=== PATIENT | female | born 1970 | race Caucasian/White ===

== ENCOUNTER → 2016-09-06 | Day surgery (SDC) | payer BC ==
[~2016-09-06] MED LIST: ALBUTEROL INHALER; ALBUTEROL20 ml INH; ALLOPURINOL300 MG PO; AVAPRO150 MG PO; DUEXIS 800-26.1 EACH PO; FLAGYL PO; FLOMAX0.4 M1 PO; GABAPENTIN300 M2 PO; HYDROCODON-ACE1 EAC7 PO; LEVOTHYROXINE PO; LEVOXYL175 MC1 PO; LIORESAL10 MG PO; LO LOESTRIN FE1 EACH PO; LOESTRIN 21 1-1 EACH PO; MULTI VITAMIN1 EACH PO; NEURONTIN600 MG PO; NORCO 10/3251 TAB DOB; NORVASC PO; QVAR INHALER; QVAR8.7 G1 INH; SINGULAIR PO; VITAMIN D33000 UNIT PO; XOLAIR; XOLAIR150 MG/1.2 INJ; XOLAIR150 MG/1.2 SUBQ; ZOFRAN PO; ZYRTEC PO; ZYRTEC10 M1 PO; [UNRECOGNIZED DRUG - OTHER]
--- NOTE | ~2016-09-06 | OR ---
Unit #: [id number] #: [id number] Patient: KONRAD WARNER [id number] [address] [place], [place] [address] [id number] O MR#: [id number] NAME: KONRAD WARNER ROOM: Date of Procedure: 09/06/2016 Admission Date: 09/06/2016 Surgeon: Zac Higgins M.D. : 1970 Attending Physician: Zac Higgins M.D. Primary Care Physician: Nadiya Varela M.D. OPERATIVE REPORT JOB NOTE: CC: PAIN CENTER PREOPERATIVE DIAGNOSIS Chronic regional pain syndrome of lower extremity. POSTOPERATIVE DIAGNOSIS Chronic regional pain syndrome of lower extremity. PROCEDURE PERFORMED Lumbar sympathetic block with intravenous sedation and fluoroscopic guidance for needle localization. 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 She has been treated aggressively with conservative measures, some improvement, sympathetic blockade is too required when the pain flares. We are currently waiting approval for hopeful spinal cord stimulation trial. In the last visit, she also had a scar neuroma injected of foot, which was very helpful and remained helpful. DESCRIPTION OF PROCEDURE The patient was placed in a prone position. Standard monitors were applied. 2 mg of Versed were given for sedation and anxiolysis, which were adequate. Vital signs remained stable. Sterile prep and drape then of the thoracolumbar area was performed. The skin then to the right of midline at the L1 level was localized with 1% lidocaine. A long 22-gauge Quincke-point spinal needle was advanced with biplanar fluoroscopic guidance to the lateral border of the L1 vertebral body. The needle was worked up to the anterolateral border and checked with biplanar fluoroscopy with radiographic contrast and loss of resistance technique. After confirming proper positioning, 10 mL of 0.25% bupivacaine were deposited. There was negative intermittent aspiration every 2 to 3 mL. The patient tolerated the procedure otherwise well and was discharged to the recovery room in stable condition. Dictated by... Zac Higgins M.D. P/modl Unit #: [id number] #: [id number] Patient: KONRAD WARNER TD: 09/06/2016 22:37 JOB #: [id number] OPERATIVE REPORT X Zac Higgins MD X PROCEDURE OPERATIVE NOTE
== END | disposition home or self-care (01) ==
LOC: CCSC 11:11
DX: G90.521 Complex regional pain syndrome I of right lower limb (principal)
CPT/HCPCS: J1040; J2250

== ENCOUNTER → 2016-09-26 | Day surgery (SDC) | payer BC ==
--- NOTE | ~2016-09-26 | CR242 ---
[facility] A Service of [facility] RADIOLOGY TEXT RESULTS PATIENT: KONRAD WARNER LOCATION: [facility] : [birth year] UNIT #: [id number] AGE: [address]: Zac Higgins MD SEX: F ORDER DR: [id number] [facility] [address] [place], [place] [address] [id number] MR#: [id number] Acc #: [id number] NAME: KONRAD WARNER : 1970 SEX: F STUDY DATE/TIME: 09/26/2016 10:04 UNIT: [facility] ROOM: STUDY DESCRIPTION: CR Thoracic Spine 2 Views Attending Physician: Zac Higgins M.D. Ordering Physician: Zac Higgins M.D. Primary Care Physician: Nadiya Varela M.D. MEDICAL IMAGING REPORT This report is preliminary unless electronic signature is present EXAM Thoracic spine in the OR, 09/26 INDICATIONS Pain stimulator insertion today. History of chronic back pain for at least 2 months. FINDINGS AP and lateral C-arm views of the thoracolumbar junction were obtained. Fluoro time is 1 minute 14 seconds. Study shows an intraspinal catheter, with the distal tip at the level of the mid T8 vertebral body. Correlate with operative note. IMPRESSION Catheter tip at the level of mid T8. Correlate with operative note. Dictated by... Alberto Velazquez Jr., M.D. THIS IS AN ELECTRONICALLY VERIFIED REPORT Alberto Velazquez Jr., M.D. at 09/26/2016 10:31 PM ART/esme TD: 09/26/2016 19:32 JOB #: [id number] MEDICAL IMAGING REPORT COPY
--- NOTE | ~2016-09-26 | EKG ---
PATIENT: KONRAD WARNER UNIT #: [id number] Ventricular Rate: 70 BPM Atrial Rate: 70 BPM P-R Interval: 148 ms QRS Duration: 78 ms Q-T Interval: 390 ms QTC Calculation(Bezet): 421 ms P [place]: 49 degrees Calculated R [place]: 13 degrees Calculated T [place]: 45 degrees Diagnosis Line: Normal sinus rhythm Diagnosis Line: Normal ECG Diagnosis Line: No previous ECGs available Diagnosis Line: Confirmed by TYLER HOUSE MD ([id number]) on Diagnosis Line: 09/27/2016 2:21:38 PM INTERPRETING MD: HARSH THOMASON
--- NOTE | ~2016-09-26 | OR ---
Unit #: [id number] #: [id number] Patient: KONRAD WARNER [id number] [address] [place], [place] [address] [id number] MR#: [id number] NAME: KONRAD WARNER ROOM: 30391 Date of Procedure: 09/26/2016 Admission Date: 09/26/2016 Surgeon: Zac Higgins M.D. : 1970 Attending Physician: Zac Higgins M.D. Primary Care Physician: Nadiya Varela M.D. OPERATIVE REPORT PREOPERATIVE DIAGNOSIS Chronic regional pain syndrome, right lower extremity. POSTOPERATIVE DIAGNOSIS Chronic regional pain syndrome, right lower extremity. PROCEDURE PERFORMED Spinal cord stimulator with percutaneous lead placement with fluoroscopic guidance. ANESTHESIA MAC. ESTIMATED BLOOD LOSS 5 mL. DESCRIPTION OF PROCEDURE The patient was placed in a prone position. Standard monitors were applied. Sterile prep and drape of the thoracolumbar area was performed. The skin just to the left of midline at L1-L2 level was localized with 1% lidocaine. A 14-gauge introducer needle was then advanced after stab incision was made with an 11-blade. It was advanced via slight left paramedian approach with loss of resistance technique. The patient did not complain of pain or paresthesia. We elected to reposition 2 or 3 times before we were able to get the lead to travel cephalad along the midline. The patient did not complain of any paresthesia or pain. We were able to get stimulation then with a central leads overlying the T12 vertebral body. Stimulation at this level covered all of the patient's symptomatic area in her right lower extremity. The catheter system was then securely fastened using 2-0 suture and a butterfly anchor. Sterile dressing was applied. The patient was discharged to recovery for programming. Dictated by... Gail ColmenaresP/rosalbal TD: 09/26/2016 22:29 Unit #: [id number] #: [id number] Patient: KONRAD WARNER JOB #: [id number] OPERATIVE REPORT Page 1 of 1 X Zac Higgins MD X PROCEDURE OPERATIVE NOTE
[2016-09-26 09:31] LABS: BLOOD UREA NITROGEN 14 mg/dL (9-23); CALCIUM SERUM 8.6 mg/dL (8.4-10.2); CARBON DIOXIDE 25 mmol/L (22-31); CHLORIDE 106 mmol/L (100-111); CREATININE SERUM 0.8 mg/dL (0.6-1.4); GLOM FILT RATE Estimated ABOVE60 mL/min (>60); GLUCOSE FASTING 91 mg/dL (70-110); POTASSIUM 4.2 mmol/L (3.5-5.1); SODIUM 139 mmol/L (135-145)
== END | disposition home or self-care (01) ==
LOC: CSUR 08:17
PROVIDERS: Pain Medicine Pain Medicine
DX: G90.521 Complex regional pain syndrome I of right lower limb (principal); E03.9 Hypothyroidism, unspecified; I10 Essential (primary) hypertension; E66.9 Obesity, unspecified; Z68.38 Body mass index [BMI] 38.0-38.9, adult; J45.909 Unspecified asthma, uncomplicated; Z79.899 Other long term (current) drug therapy; Z87.442 Personal history of urinary calculi; Z85.528 Personal history of other malignant neoplasm of kidney; Z98.890 Other specified postprocedural states; Z88.1 Allergy status to other antibiotic agents; Z88.0 Allergy status to penicillin; Z88.2 Allergy status to sulfonamides; Z88.8 Allergy status to other drugs, medicaments and biological substances
CPT/HCPCS: 72070; 76000; 80048; 84703; 93005; C1778; J2250; J3010

== ENCOUNTER → 2016-12-19 | Day surgery (SDC) | payer BC ==
--- NOTE | ~2016-12-19 | OR ---
Unit #: [id number] #: [id number] Patient: KONRAD WARNER [id number] [address] [place], [place] [address] [id number] O MR#: [id number] NAME: KONRAD WARNER ROOM: Date of Procedure: 12/19/2016 Admission Date: 12/19/2016 Surgeon: Zac Higgins M.D. : 1970 Attending Physician: Zac Higgins M.D. Referring Physician: Zac Higgins M.D. Primary Care Physician: Nadiya Varela M.D. OPERATIVE REPORT PREOPERATIVE DIAGNOSIS Complex regional pain syndrome of the lower extremity. POSTOPERATIVE DIAGNOSES Complex regional pain syndrome of the lower extremity, status post placement of spinal cord stimulator lead x2 and spinal cord stimulator IPG. ANESTHESIA MAC. PREOPERATIVE ANTIBIOTICS Vancomycin. DESCRIPTION OF PROCEDURE The patient was placed in a prone position. She got herself comfortable before being given sedation. Standard monitors were applied. Sterile prep and drape then was performed. Fluoroscopy was used to identify the L1, L2, L3 spinous processes. The skin just lateral to this was localized with 0.5% Marcaine with epinephrine. Also, area of the patient's left buttock was localized with 0.5% Marcaine with epinephrine. Sharp and then Bovie dissection were used to dissect down to the paraspinous space. After this, a 14-gauge introducer needle was advanced via slight left paramedian approach in toward the epidural space. The patient arched her back when she awoke and caused a suspected dural puncture. She had no complaints of pain or paresthesia. The introducer needle was placed first at the L1-L2 level and another one was placed at L2-L3 again via loss of resistance technique. At these positions, we attempted to thread the stimulator electrodes cephalad. The patient had discomfort just as the electrode would enter the epidural space. Then, when we ascended somewhat higher we were getting more lateral stimulation or mostly left-sided stimulation more than right, even though it appeared that we were more to the right of midline. It was then replaced at the T12-L1 level again via left paramedian approach. Two needles were placed at this level. The catheters were advanced up so that the distal tip laid at approximately the midpoint of T9. It was just to the right of midline. With this, we were able to get excellent stimulation in all areas of her right lower extremity. It was securely fastened using the Psydex anchoring system. The IPG pocket was then created in the patient's left buttock using sharp and then Bovie dissection to properly size it. This was properly sized. Tunneling device was used to past the catheter from the paraspinous wound to the buttock. This was done without complication. The electrodes were attached to the IPG and impedances were checked. Unit #: [id number] #: [id number] Patient: KONRAD WARNER These were all good. At this point, the redundant catheter and system were coiled under the IPG and placed in the buttock. This all seemed to fit properly. This was removed. Both wounds were copiously irrigated with irrigant. The leads and IPG were replaced in the buttock. Both wounds were then closed in multiple layers with 2-0 Vicryl and the skin was closed with maximus. The patient tolerated the entire procedure well and was discharged to recovery room in stable condition. Contact lead kits were model [id number] and . Dictated by... Zac Higgins M.D. PITO/jose TD: 12/20/2016 02:03 JOB #: [id number] OPERATIVE REPORT Page 1 of 1 X Zac Higgins MD X PROCEDURE OPERATIVE NOTE
[2016-12-19 09:26] LABS: BUN/CREATININE RATIO 18.75; CALCIUM SERUM 8.9 mg/dL (8.4-10.2); CREATININE SERUM 0.8 mg/dL (0.6-1.4); GLOM FILT RATE Estimated 87.3 mL/min (>60)
== END | disposition home or self-care (01) ==
LOC: CSUR 08:08
PROVIDERS: Urology
DX: G90.521 Complex regional pain syndrome I of right lower limb (principal); E03.9 Hypothyroidism, unspecified; I10 Essential (primary) hypertension; J45.909 Unspecified asthma, uncomplicated; Z87.442 Personal history of urinary calculi; Z98.890 Other specified postprocedural states; Z85.53 Personal history of malignant neoplasm of renal pelvis; Z88.0 Allergy status to penicillin; Z88.8 Allergy status to other drugs, medicaments and biological substances; Z88.2 Allergy status to sulfonamides; Z79.899 Other long term (current) drug therapy; Z79.891 Long term (current) use of opiate analgesic
CPT/HCPCS: 77003; 80048; C1778; C1820; C1883; J1885; J2250; J3370

== ENCOUNTER → 2017-01-23 | Day surgery (SDC) | payer BC ==
--- NOTE | ~2017-01-23 | OR ---
Unit #: [id number] #: [id number] Patient: KONRAD WARNER [id number] [address] [place], [place] [address] [id number] O MR#: [id number] NAME: KONRAD WARNER ROOM: Date of Procedure: 01/23/2017 Admission Date: 01/23/2017 Surgeon: Zac Higgins M.D. : 1970 Attending Physician: Zac Higgins M.D. Primary Care Physician: Nadiya Varela M.D. OPERATIVE REPORT JOB NOTE: CC: PAIN CENTER PREOPERATIVE DIAGNOSIS Malpositioned spinal cord stimulator internal pulse generator. PROCEDURE PERFORMED Revision of pulse generator pocket. ANESTHESIA General. PREOPERATIVE ANTIBIOTICS 0.5 g of vancomycin. ESTIMATED BLOOD LOSS 5 mL. DESCRIPTION OF PROCEDURE The patient was placed under general anesthetic in a right lateral decubitus position by the OR staff. Pressure points were padded. 0.5% Marcaine with epinephrine was used to localize the skin over the prior incision kleber from initial IPG placement. Sharp dissection was used to open to the IPG pocket. The patient had extremely dense subcutaneous fat tissue, which had increased the problems causing the stimulator battery couple not to be able to couple and charge the battery. The pump pocket was situated approximately an inch from the skin surface. There was some yellowish fluid suctioned out from the pump pocket, did not appear to be consistent with any infection, but samples were taken. The IPG was externalized and hooked into the battery and it seem to be charged fine. The new pump pocket was created using Bovie and then blunt dissection with a distance somewhere between half and quarter inch from the skin. This was properly sized. Both pockets were copiously irrigated with irrigant. The connector and much of the redundant wire was left in the lower pocket. This was closed with 2-0 Vicryl. The subcutaneous layer was then closed in 2 layers with 2-0 Vicryl. The skin was closed with maximus. The charging was then again checked once the incision was closed and was found to be normal as expected. The patient was discharged to the recovery room in stable condition. Dictated by... Zac Higgins M.D. Unit #: [id number] #: [id number] Patient: KONRAD WARNER PITO/jose TD: 01/23/2017 12:09 JOB #: [id number] OPERATIVE REPORT Page 1 of 1 X Zac Higgins MD X PROCEDURE OPERATIVE NOTE
--- NOTE | ~2017-01-23 | EKG ---
PATIENT: KONRAD WARNER UNIT #: [id number] Ventricular Rate: 68 BPM Atrial Rate: 68 BPM P-R Interval: 148 ms QRS Duration: 72 ms Q-T Interval: 364 ms QTC Calculation(Bezet): 387 ms P [place]: 40 degrees Calculated R [place]: 5 degrees Calculated T [place]: 28 degrees Diagnosis Line: Normal sinus rhythm Diagnosis Line: Normal ECG Diagnosis Line: When compared with ECG of 26-SEP-2016 08:39, Diagnosis Line: No significant change was found Diagnosis Line: Confirmed by REX LEDESMA MD ([id number]) on Diagnosis Line: 01/23/2017 9:37:39 AM INTERPRETING MD: CALLIE THOMASON
[2017-01-23 10:26] LABS: BUN/CREATININE RATIO 18.57; CALCIUM SERUM 8.8 mg/dL (8.4-10.2); CREATININE SERUM 0.7 mg/dL (0.6-1.4); GLOM FILT RATE Estimated 102.5 mL/min (>60); POTASSIUM 3.9 mmol/L (3.5-5.1)
== END | disposition home or self-care (01) ==
LOC: CSUR 01-16 14:30
PROVIDERS: Pain Medicine Pain Medicine
DX: T85.123A Displacement of implanted electronic neurostimulator, generator, initial encounter (principal); G90.521 Complex regional pain syndrome I of right lower limb; E03.9 Hypothyroidism, unspecified; J45.909 Unspecified asthma, uncomplicated; I10 Essential (primary) hypertension; Z90.5 Acquired absence of kidney; Z98.890 Other specified postprocedural states; Z88.0 Allergy status to penicillin; Z88.2 Allergy status to sulfonamides; Z88.8 Allergy status to other drugs, medicaments and biological substances; Z88.1 Allergy status to other antibiotic agents; Z79.899 Other long term (current) drug therapy; Z87.442 Personal history of urinary calculi; Z85.53 Personal history of malignant neoplasm of renal pelvis; Z79.891 Long term (current) use of opiate analgesic; Z79.51 Long term (current) use of inhaled steroids
CPT/HCPCS: 80048; 84703; 87070; 87075; 87205; 93005; J2250; J3010; J3370